=== PATIENT | male | born 1965 | race African-American/Black ===

== ENCOUNTER 2017-04-10 08:51 | Emergency (ER) | payer SELFPAY ==
[2017-04-10 08:57] VITALS: TEMP 98.1
[2017-04-10] MEDS ORDERED: PREDNISONE 20 MG TAB PO ONE (09:14)
[2017-04-10] MEDS ORDERED: PREDNISONE 20 MG TAB ONE (09:16)
[2017-04-10 09:55] VITALS: BP 116/85; PULSE 109; RESP 24; O2SAT 98
== END 2017-04-10 09:20 | disposition left against medical advice (07) | DRG 203 ==
LOC: ED 08:51
DX: J45.901 Unspecified asthma with (acute) exacerbation (principal)
CPT/HCPCS: 99283